=== PATIENT | male | born 1950 | race Caucasian/White ===

== ENCOUNTER 2019-09-25 23:33 | Emergency (ER) | payer MEDICARE, OTHER, SELFPAY ==
[2019-09-26 00:02] VITALS: BP 149/75; PULSE 55; RESP 16; TEMP 36.7; O2SAT 95; BMI 31.6
--- NOTE | 2019-09-26 00:21 | W.ED.ABDPA2 ---
HPI - Abdominal Pain General: Chief Complaint: Abdominal Pain Stated Complaint: unable to void Time Seen by Provider: 09/26/19 00:20 Source: patient Mode of arrival: ambulatory Limitations: no limitations History of Present Illness: HPI narrative: Patient comes in today for decreased urinary output for the last 2 days. Patient states that he has a history of urinary difficulty but has only happened that where he has had been Roberts cath was after a surgery. Patient does take finasteride routinely for his history of his bladder problems. Patient does take levocetirizine daily for allergies. Review of patient's other medications have no other concerns for medicine induced urinary retention. Patient denies any fever or chills. Patient appears well. Patient appears in no pain. MD elicited complaint: abdominal pain Review of Systems General: Reports: 10 or more systems reviewed and unremarkable except in HPI and below : Reports: difficulty urinating PFS ED PFSH: Medical History (Updated 09/26/19 @ 02:42 by NHUNG Constantino) Atherosclerotic heart disease of [place] coronary artery without angina pectoris Diabetes Dyslipidemia Essential hypertension Surgical History (Updated 07/10/19 @ 16:15 by Beck Bey MD) H/O coronary angioplasty Family History Father Prostate cancer Grandfather Prostate cancer Social History Smoking and tobacco status: never smoked Alcohol intake: never Lives independently: Yes Household members: spouse Housing: House Marital status: Current occupational status: retired History of recent travel: No Physical Exam Const: COMMON NORMALS: no acute distress and patient oriented x3 GENERAL APPEARANCE: cooperative HENMT: COMMON NORMALS: normocephalic, TM's normal bilaterally and Normal external nose present HEAD & SCALP: normal to inspection and normocephalic NOSE: Normal external nose present TYMPANIC MEMBRANE: TM's normal bilaterally MOUTH: Normal oral and palatal mucosa present THROAT: posterior oropharynx normal Eye: GENERAL EYE: appearance normal, both eyes and all related structures Neck/C-Spine: COMMON NORMALS: full ROM Lymph: LYMPHATIC: no lymphadenopathy noted Chest: COMMONS NORMALS: normal inspection of the chest Resp: COMMON NORMALS: normal respiratory effort EFFORT & INSPECTION: Yes able to speak in complete sentences Cardio: COMMON NORMALS: regular rate and regular rhythm RATE: regular rate RHYTHM: regular rhythm GI: PALPATION: Yes Tenderness to palpation present (GI) (Lower suprapubic abdomen) : COMMON NORMALS: Yes no CVA tenderness BLADDER/KIDNEY EXAM: Yes no CVA tenderness Back/Pelvis: COMMON NORMALS: no CVA tenderness and thoracic and lumbar spine normal to inspection Extremity: COMMON NORMALS: normal to inspection Neuro: COMMON NORMALS: patient oriented x3 and moves all extremities Psych: COMMON NORMALS: mental status grossly normal and cooperative Skin: COMMON NORMALS: no rashes or lesions noted GENERAL SKIN EXAM: no rashes or lesions noted Course Vital Signs: Vital signs: Vital Signs Temperature 98.0 F 09/26/19 00:02 Pulse Rate 55 L 09/26/19 00:02 Respiratory Rate 16 09/26/19 00:02 Blood Pressure 149/75 09/26/19 00:02 Pulse Oximetry 95 09/26/19 00:02 MDM - Abdominal Pain MDM Narrative: Medical decision making narrative: Patient comes in today for complaints of urinary retention. On exam patient has some suprapubic tenderness. Respirations were even lungs were clear to auscultation. Vital signs were normal. Differential diagnosis included urinary tract infection, renal dysfunction, adverse drug effect, BPH. CBC was normal. CMP noted a mild elevation in the BUN at 26. Urinalysis was clear. Roberts cath for urine was 300 cc out. Reviewed exam with patient recommended stopping levocetirizine as it increases risk of urinary retention. Recommended the use of loratadine instead for allergy symptoms. Encourage plenty of fluids and follow-up with primary care or return to the ER for worsening symptoms. Patient reported understanding agreed to plan. Lab Data: Labs: Lab Results 09/26/19 09/26/19 09/26/19 Range/Units 00:27 00:27 02:20 WBC 9.4 (4.0-10.0) 10^3/ uL RBC 4.91 (4.1-5.3) 10^6/u L Hgb 14.9 (11.7-16.6) g/dL Hct 45.9 (42.0-52.0) % MCV 93.5 (80-94) fL MCH 30.3 (28.0-34.0) pg MCHC 32.5 (30.0-36.0) g/dL RDW 12.2 (12.1-15.1) % Plt Count 253 (130-400) 10^3/c mm MPV 9.1 (7.4-10.4) fL Neut % (Auto) 55.4 % Lymph % (Auto) 29.2 % [place] % (Auto) 11.2 % Eos % (Auto) 3.0 % Baso % (Auto) 0.9 % Neut # (Auto) 5.2 (1.8-7.7) 10^3/u L Lymph # (Auto) 2.7 (0.8-4.8) 10^3/u L [place] # (Auto) 1.1 H (0.2-0.9) 10^3/u L Eos # (Auto) 0.3 (0.0-0.8) 10^3/u L Baso # (Auto) 0.1 (0.0-0.1) 10^3/u L Nucleated RBC % (a uto) 0 % Nucleated RBCs # 0.0 /100WBC Sodium 141 (136-145) mmol/L Potassium 3.9 (3.5-5.1) mmol/L Chloride 106 (98-107) mmol/L Carbon Dioxide 23 (22-29) mmol/L Anion Gap 15.9 (5-19) BUN 26 H (8-23) mg/dL Creatinine 0.7 (0.7-1.2) mg/dL GFR Calculation 111.5 (90-130) mL/min Glucose 92 (65-115) mg/dL Calculated Osmolal ity 289 (285-295) mOsm/k g Calcium 8.8 (8.5-10.5) mg/dL Total Bilirubin 0.4 (0.15-1.2) mg/dL AST 19 (0-40) U/L ALT 20 (0-41) U/L Alkaline Phosphata se 53 (40-130) IU/L Total Protein 6.4 L (6.6-8.7) g/dL Albumin 4.2 (3.5-5.2) g/dL Globulin 2.2 (1.3-4.6) g/dL Urine Color Yellow (Yellow) Urine Appearance Clear (CLEAR) Urine pH 5 (5-7) Ur Specific Gravit y 1.030 (1.005-1.030) Urine Protein Neg (Negative) Urine Glucose (UA) Norm (Normal) Urine Ketones Negative (Negative) Urine Blood Neg (Negative) Urine Nitrate Negative (Negative) Urine Bilirubin Neg (NEGATIVE) Urine Urobilinogen Norm (Negative) mg/dL Ur Leukocyte Lisa ase Negative (Negative) Discharge Plan Discharge Patient Disposition: Home, Self-Care Clinical Impression: Urinary retention Adverse drug effect Qualifiers: Encounter type: initial encounter Qualified Code(s): T50.905A - Adverse effect of unspecified drugs, medicaments and biological substances, initial encounter Condition: Stable Prescriptions: Discontinued levocetirizine [Xyzal] 5 mg tablet 5 mg PO DAILY RF: 0 No Action aspirin [Aspirin Childrens] 81 mg tablet,chewable 81 mg PO DAILY RF: 0 lisinopril 10 mg tablet 10 mg PO DAILY RF: 0 acetaminophen [Tylenol] 325 mg capsule 325 mg PO QID PRNRF: 0 rosuvastatin 10 mg tablet 10 mg PO DAILY RF: 0 Discharge Orders: Discharge Order (Routine); Ordered 09/26/19 Ordered By: Akbar Chang Referrals: Pop Rice MD [Primary Care Provider] - Discharge Diet: Usual diet Discharge Activity: Increase activity as tolerated Activity Restrictions/Additional Instructions: Drink plenty of fluids. Stop Xyzal due to risk of urinary retention. You may use Claritin, loratadine, for your allergy symptoms. Monitor for fever, worsening symptoms and return to the ER if needed. Follow-up with primary care in 1 week. Coding Level of Care Code ED Marine Equipment Design Engineer for g Fwd Exam Comprehensive
[2019-09-26 00:43] LABS: Basophils # 0.1 10^3/uL (0.0-0.1); Basophils % 0.9 %; Eosinophils # 0.3 10^3/uL (0.0-0.8); Hematocrit 45.9 % (42.0-52.0); Hemoglobin 14.9 g/dL (11.7-16.6); Lymphocytes # 2.7 10^3/uL (0.8-4.8); Lymphocytes % 29.2 %; Mean Corpuscular HGB Conc 32.5 g/dL (30.0-36.0); Mean Corpuscular Hemoglobin 30.3 pg (28.0-34.0); Mean Corpuscular Volume 93.5 fL (80-94); Mean Platelet Volume 9.1 fL (7.4-10.4); Monocytes # 1.1 10^3/uL (0.2-0.9); Monocytes % 11.2 %; Neutrophils # 5.2 10^3/uL (1.8-7.7); Neutrophils % 55.4 %; Nucleated Red Blood Cells % 0 %; Platelet Count 253 10^3/cmm (130-400); Red Blood Count 4.91 10^6/uL (4.1-5.3); Red Cell Distribution Width 12.2 % (12.1-15.1); White Blood Count 9.4 10^3/uL (4.0-10.0)
[2019-09-26 00:57] LABS: Alanine Aminotransferase 20 U/L (0-41); Albumin Level 4.2 g/dL (3.5-5.2); Alkaline Phosphatase 53 IU/L (40-130); Anion Gap 15.9 (5-19); Aspartate Amino Transferase 19 U/L (0-40); Blood Urea Nitrogen 26 mg/dL (8-23); Calcium 8.8 mg/dL (8.5-10.5); Carbon Dioxide 23 mmol/L (22-29); Chloride 106 mmol/L (98-107); Globulin 2.2 g/dL (1.3-4.6); Glomerular Filtration Rate 111.5 mL/min (90-130); Glucose 92 mg/dL (65-115); Osmolality Calculated 289 mOsm/kg (285-295); Potassium 3.9 mmol/L (3.5-5.1); Sodium 141 mmol/L (136-145); Total Bilirubin 0.4 mg/dL (0.15-1.2); Total Protein 6.4 g/dL (6.6-8.7)
[2019-09-26 02:26] LABS: Add Urine Microscopic? NO; Bilirubin Urine Neg (NEGATIVE); Blood Urine Neg (Negative); Glucose Urine UA Norm (Normal); Ketones Urine Negative (Negative); Leukocyte Esterase Urine Negative (Negative); Nitrate Urine Negative (Negative); Protein Urine Neg (Negative); Urine Appearance Clear (CLEAR); Urine Color Yellow (Yellow); Urobilinogen Urine Norm (Negative); pH Urine 5 (5-7)
[2019-09-26 02:52] VITALS: BP 142/84; PULSE 60; RESP 20; O2SAT 96
--- NOTE | 2019-09-26 02:56 | PC.NURSE ---
i agree with this assessment
== END 2019-09-26 02:58 | disposition home or self-care (01) ==
PROVIDERS: Emergency Provider Nurse Practitioner Family; PCP Family Medicine
DX: R33.9 Retention of urine, unspecified (principal); T50.905A Adverse effect of unspecified drugs, medicaments and biological substances, initial encounter; Z79.82 Long term (current) use of aspirin; E78.5 Hyperlipidemia, unspecified; E11.9 Type 2 diabetes mellitus without complications; I10 Essential (primary) hypertension; Z98.61 Coronary angioplasty status
CPT/HCPCS: 12345; 51702; 80053; 81003; 85025; 99282; 99283

== ENCOUNTER 2019-09-27 00:43 | Emergency (ER) | payer MEDICARE, OTHER, SELFPAY ==
[2019-09-27 00:50] VITALS: BP 164/75; PULSE 56; RESP 18; TEMP 36.6; O2SAT 97; BMI 32.5
--- NOTE | 2019-09-27 00:59 | W.ED.MALEGU ---
HPI - Male Genitourinary General: Chief complaint: Urogenital-Male Stated complaint: unable to urinate/here yesterday for same Time Seen by Provider: 09/27/19 00:59 History of Present Illness: HPI Narrative: Patient comes in again tonight for difficulty of urination again. Patient reports urinating this morning without any difficulty. Patient then reports this evening he was been unable to urinate again. Patient was seen last night and was drained of 300 mL's of urine. Patient did not want to continue with the Soria catheter last night and wanted to try stopping medication to see if he was able to go. Review of Systems General: Reports: 10 or more systems reviewed and unremarkable except in HPI and below : Reports: difficulty urinating [facility] ED PFSH: Medical History (Updated 09/27/19 @ 01:51 by NHUNG Constantino) Atherosclerotic heart disease of [place] coronary artery without angina pectoris Diabetes Dyslipidemia Essential hypertension Surgical History (Updated 07/10/19 @ 16:15 by Beck Bey MD) H/O coronary angioplasty Family History Father Prostate cancer Grandfather Prostate cancer Social History Smoking and tobacco status: never smoked Alcohol intake: never Lives independently: Yes Household members: spouse Housing: House Marital status: Current occupational status: retired History of recent travel: No Physical Exam Const: COMMON NORMALS: no acute distress and patient oriented x3 GENERAL APPEARANCE: cooperative HENMT: COMMON NORMALS: normocephalic and Normal external nose present HEAD & SCALP: normal to inspection and normocephalic NOSE: Normal external nose present MOUTH: Normal oral and palatal mucosa present THROAT: posterior oropharynx normal Eye: GENERAL EYE: appearance normal, both eyes and all related structures Neck/C-Spine: COMMON NORMALS: full ROM Chest: COMMONS NORMALS: normal inspection of the chest Resp: COMMON NORMALS: normal respiratory effort EFFORT & INSPECTION: Yes able to speak in complete sentences Cardio: COMMON NORMALS: regular rate and regular rhythm RATE: regular rate RHYTHM: regular rhythm GI: COMMON NORMALS: non-tender : COMMON NORMALS: Yes no CVA tenderness BLADDER/KIDNEY EXAM: Yes no CVA tenderness Back/Pelvis: COMMON NORMALS: no CVA tenderness and thoracic and lumbar spine normal to inspection Extremity: COMMON NORMALS: normal to inspection Neuro: COMMON NORMALS: patient oriented x3 and moves all extremities Psych: COMMON NORMALS: mental status grossly normal and cooperative Skin: COMMON NORMALS: no rashes or lesions noted GENERAL SKIN EXAM: no rashes or lesions noted Course Vital Signs: Vital signs: Vital Signs Temperature 97.8 F 09/27/19 00:50 Pulse Rate 56 L 09/27/19 00:50 Respiratory Rate 18 09/27/19 00:50 Blood Pressure 164/75 09/27/19 00:50 Pulse Oximetry 97 09/27/19 00:50 MDM - Male MDM Narrative: Medical decision making narrative: Patient comes in today for complaints of urinary discomfort and difficulty urinating. Patient appears well. Patient appears in no acute distress. Patient was seen last night for the similar problem and had a Soria placed but did not want to leave in the Soria in 1 to try his routine today. Patient this evening found that he could not urinate again. Patient wants a Soria and now and wants to leave it in for the time until he follows up with primary care or urology. Soria catheter was placed and patient had 100-200 cc out. I suspect patient probably might have a mild prostatitis that is giving him the sensation of not fully voiding. We will go ahead and leave the catheter in for the next 3 days and plan to have it removed either with his primary care or urology. Case management will see about getting patient into Dr. Ortega's office. Patient already has an appointment with Dr. Rice on Sunday. Will start patient on Bactrim to cover for prostatitis. Patient was already started on tamsulosin by Dr. Rice. Discharge Plan Discharge Patient Disposition: Home, Self-Care Clinical Impression: Urinary retention Condition: Stable Prescriptions: New Bactrim DS 800-160 mg tablet 1 tab PO BID 10 Days Qty: 20 RF: 0 No Action aspirin [Aspirin Childrens] 81 mg tablet,chewable 81 mg PO DAILY RF: 0 lisinopril 10 mg tablet 10 mg PO DAILY RF: 0 acetaminophen [Tylenol] 325 mg capsule 325 mg PO QID PRNRF: 0 rosuvastatin 10 mg tablet 10 mg PO DAILY RF: 0 Discharge Orders: Discharge Order (Routine); Ordered 09/27/19 Ordered By: Akbar Chang Referrals: Pop Rice MD [Primary Care Provider] - Discharge Diet: Usual diet Discharge Activity: Increase activity as tolerated Activity Restrictions/Additional Instructions: Drink plenty of water, avoid pulling on soria catheter, follow-up with primary care in three days or urology for removal of catheter, Take antibiotics as directed Return to ER for high fever or new concerns Coding Level of Care Code ED Plate Fitter for Chg Fwd Exam Comprehensive
--- NOTE | 2019-09-27 02:15 | PC.NURSE ---
Leg bag placed on patient and home care instructions given to patient with all questions asked and answered.
[2019-09-27] MEDS: sulfamethoxazole-trimeth DS 160-800 mg Tablet 1 TAB PO (02:23)
[2019-09-27 02:24] LABS: Urine Appearance SL Hazy (CLEAR); Urine Color Yellow (Yellow); pH Urine 5 (5-7)
[2019-09-27 02:25] LABS: Add Urine Microscopic? YES; Bilirubin Urine Neg (NEGATIVE); Blood Urine 3+ (Negative); Glucose Urine UA Norm (Normal); Ketones Urine 1+ (Negative); Leukocyte Esterase Urine Negative (Negative); Nitrate Urine Negative (Negative); Protein Urine Neg (Negative); Urobilinogen Urine 1 mg/dL (Negative)
[2019-09-27 02:26] LABS: Bacteria Urine TRACE; RBC Urine 40-50 /hpf (0-2); Squamous Epithelial Cell Urine 0-4 (0-5); WBC Urine 0-4 /hpf (0-5)
[2019-09-27 02:27] LABS: Add Urine Culture? Yes; Mucus Urine 2+
== END 2019-09-27 02:31 | disposition home or self-care (01) ==
PROVIDERS: Emergency Provider Nurse Practitioner Family; PCP Family Medicine
DX: R33.9 Retention of urine, unspecified (principal); Z79.82 Long term (current) use of aspirin; E11.9 Type 2 diabetes mellitus without complications; E78.5 Hyperlipidemia, unspecified; I10 Essential (primary) hypertension; Z98.61 Coronary angioplasty status
CPT/HCPCS: 12345; 51702; 81001; 87086; 99281; 99282; 99283

== ENCOUNTER 2019-09-27 07:42 | Emergency (ER) | payer MEDICARE, OTHER, SELFPAY ==
[2019-09-27] VITALS (7 sets, daily range): BP systolic 166–198; BP diastolic 81–100; PULSE 53–98; RESP 16–18; TEMP 36.6–36.7; O2SAT 95–96; BMI 32.5
--- NOTE | 2019-09-27 07:53 | W.ED.MALEGU ---
HPI - Male Genitourinary General: Chief complaint: Urogenital-Male Stated complaint: cath issues Time Seen by Provider: 09/27/19 07:48 History of Present Illness: HPI Narrative: Patient is a 68-year-old male who comes to the ED with Soria catheter issues. Patient was seen here last night due to urinary retention and a Soria catheter was placed and he was put on Bactrim. He woke up this morning and is having a lot of lower abdominal pain, nausea and discomfort around Soria catheter. He describes the discomfort and pain a 10 out of 10. Patient did say that he was given a Bactrim pill here in the ED last night and he took at home and took medication when he got home on an empty stomach. Patient has not eaten or drank much in the last several hours. Denies any fever chills Associated symptoms: Reports dysuria and nausea; Deny hematuria or vomiting Review of Systems Const: Denies: fever(s), chills or fatigue Eyes: Denies: change in vision or eye discomfort ENMT: Denies: throat pain, odynophagia, nasal discharge or nasal congestion Card: Denies: chest pain, palpitations, edema, swelling of feet/ankles, dyspnea on exertion or orthopnea Resp: Denies: dyspnea, productive cough or non-productive cough GI: Reports: abdominal pain (over the bladder) and nausea; Denies: vomiting, diarrhea, constipation or hematochezia : Reports: dysuria and other (soria not draining); Denies: flank pain, difficulty urinating or hematuria Musc: Reports: back pain; Denies: neck pain or extremity swelling Skin/Breast: Denies: rash or new lesions Neuro: Denies: headache(s), numbness in extremities or weakness in extremities PFS ED PFSH: Medical History Atherosclerotic heart disease of [place] coronary artery without angina pectoris Diabetes Dyslipidemia Essential hypertension Surgical History H/O coronary angioplasty Family History Father Prostate cancer Grandfather Prostate cancer Social History Smoking and tobacco status: never smoked Alcohol intake: never Lives independently: Yes Household members: spouse Housing: House Marital status: Current occupational status: retired History of recent travel: No Physical Exam Const: COMMON NORMALS: patient oriented x3 and alert GENERAL APPEARANCE: cooperative and comfortable (appears a little uncomfortable) HENMT: COMMON NORMALS: normocephalic HEAD & SCALP: normocephalic MOUTH: Normal oral and palatal mucosa present THROAT: posterior oropharynx normal and uvula midline Eye: COMMON NORMALS: Equal, round and reactive pupils present PUPIL: Yes Equal, round and reactive pupils present Neck/C-Spine: COMMON NORMALS: supple GENERAL: Yes normal visual inspection Resp: COMMON NORMALS: normal respiratory effort, No retractions, No use of accessory muscles and clear to auscultation bilaterally AUSCULTATION: clear to auscultation bilaterally Cardio: COMMON NORMALS: regular rate, regular rhythm, S1 normal heart sound present, S2 normal heart sound present, No gallops present (Cardio), No clicks present (Cardio), No murmurs present (Cardio) and Peripheral pulses 2+ throughout RATE: regular rate RHYTHM: regular rhythm HEART SOUNDS: S1 normal heart sound present and S2 normal heart sound present PERIPHERAL PULSES: Peripheral pulses 2+ throughout GI: COMMON NORMALS: Normal to inspection, nondistended, normoactive bowel sounds present, Soft to palpation and no masses PALPATION: Yes Soft to palpation, Yes Firmness to palpation present (GI) (over bladder in lower abdomen) and Yes Tenderness to palpation present (GI) (moderate tenderness over bladder in lower abdomen) : COMMON NORMALS: Yes no CVA tenderness BLADDER/KIDNEY EXAM: Yes no CVA tenderness Back/Pelvis: COMMON NORMALS: no CVA tenderness THORACIC SPINE/UPPER BACK: Yes paraspinal muscle tenderness Thoracic paraspinal muscle tenderness: right Right thoracic paraspinal muscle tenderness: T10, T11 and T12 Extremity: COMMON NORMALS: normal to inspection and no pedal edema Neuro: COMMON NORMALS: patient oriented x3 and moves all extremities SENSORIUM/ORIENTATION: Yes alert Skin: COMMON NORMALS: no rashes or lesions noted GENERAL SKIN EXAM: no rashes or lesions noted and dry skin Course Vital Signs: Vital signs: Vital Signs Temperature 97.9 F 09/27/19 11:22 Pulse Rate 98 09/27/19 11:22 Respiratory Rate 16 05/30/20 11:22 Blood Pressure 198/85 05/30/20 11:22 Pulse Oximetry 95 09/27/19 11:22 MDM - Male MDM Narrative: Medical decision making narrative: Patient is a 68-year-old male who comes to the ED with Soria catheter problems. Soria catheter was placed last night and patient was given an oral dose of Bactrim that he took last night on empty stomach. Patient returns with some nausea, burning pain when urinating. Bladder scan was performed and showed approximately 50 mils. White blood cells 13.7, CMP is negative and UA showed blood, bacteria and many white blood cells. Patient was given IV fluids, morphine and Zofran for nausea. Patient was also given an IV dose of Rocephin while here in the ED. Patient's catheter was flushed and it was working accordingly. After 2 bags of IV fluid patient was producing urine it was flowing accordingly into Soria cath bag. Patient was given a prescription for Bactrim and he was told to call [facility] urologist on Sunday to set up an appointment. He was instructed on catheter care and told to take full course of antibiotics as prescribed. He also has a follow-up appointment with his PCP this Sunday. Patient told to return to ED if symptoms worsen. Patient understood and agreed with plan. Lab Data: Attestation: I reviewed the patient's lab results. Labs: Lab Results 09/27/19 09/27/19 09/27/19 Range/Units 08:24 08:24 08:30 WBC 13.7 H (4.0-10.0) 10^3/ uL RBC 5.08 (4.1-5.3) 10^6/u L Hgb 15.5 (11.7-16.6) g/dL Hct 46.2 (42.0-52.0) % MCV 90.9 (80-94) fL MCH 30.5 (28.0-34.0) pg MCHC 33.5 (30.0-36.0) g/dL RDW 12.1 (12.1-15.1) % Plt Count 258 (130-400) 10^3/c mm MPV 9.1 (7.4-10.4) fL Neut % (Auto) 82.8 % Lymph % (Auto) 11.1 % [place] % (Auto) 4.9 % Eos % (Auto) 0.2 % Baso % (Auto) 0.6 % Neut # (Auto) 11.3 H (1.8-7.7) 10^3/u L Lymph # (Auto) 1.5 (0.8-4.8) 10^3/u L [place] # (Auto) 0.7 (0.2-0.9) 10^3/u L Eos # (Auto) 0.0 (0.0-0.8) 10^3/u L Baso # (Auto) 0.1 (0.0-0.1) 10^3/u L Nucleated RBC % (a uto) 0 % Nucleated RBCs # 0.0 /100WBC Sodium 141 (136-145) mmol/L Potassium 3.7 (3.5-5.1) mmol/L Chloride 103 (98-107) mmol/L Carbon Dioxide 22 (22-29) mmol/L Anion Gap 19.7 H (5-19) BUN 23 (8-23) mg/dL Creatinine 0.8 (0.7-1.2) mg/dL GFR Calculation 95.6 (90-130) mL/min Glucose 152 H (65-115) mg/dL Calculated Osmolal ity 292 (285-295) mOsm/k g Calcium 9.2 (8.5-10.5) mg/dL Total Bilirubin 1.0 (0.15-1.2) mg/dL AST 18 (0-40) U/L ALT 23 (0-41) U/L Alkaline Phosphata se 59 (40-130) IU/L Total Protein 7.1 (6.6-8.7) g/dL Albumin 4.6 (3.5-5.2) g/dL Globulin 2.5 (1.3-4.6) g/dL Urine Color [place] (Yellow) Urine Appearance Sl cloudy A (CLEAR) Urine pH 5 (5-7) Ur Specific Gravit y 1.030 (1.005-1.030) Urine Protein 3+ H (Negative) Urine Glucose (UA) Norm (Normal) Urine Ketones 1+ H (Negative) Urine Blood 3+ H (Negative) Urine Nitrate Negative (Negative) Urine Bilirubin Neg (NEGATIVE) Urine Urobilinogen 1 H (Negative) mg/dL Ur Leukocyte Lisa ase 1+ H (Negative) Urine RBC Too numerous to c nt H (0-2) /hpf Urine WBC 55-80 H (0-5) /hpf Ur Squamous Epith Cells Rare (0-5) Calcium Oxalate Cr ystal 0-4 H /hpf Urine Bacteria 2+ H (NONE) Urine Mucus 2+ Discharge Plan Discharge Patient Disposition: Home, Self-Care Clinical Impression: Urinary tract infection associated with indwelling urethral catheter Qualifiers: Encounter type: subsequent encounter Qualified Code(s): T83.511D - Infection and inflammatory reaction due to indwelling urethral catheter, subsequent encounter Condition: Stable Prescriptions: New sulfamethoxazole-trimethoprim 800-160 mg tablet 1 tab PO BID 10 Days Qty: 20 RF: 0 ondansetron 4 mg tablet,disintegrating 4 mg PO TID Qty: 20 RF: 0 No Action aspirin [Aspirin Childrens] 81 mg tablet,chewable 81 mg PO DAILY RF: 0 lisinopril 10 mg tablet 10 mg PO DAILY RF: 0 acetaminophen [Tylenol] 325 mg capsule 325 mg PO QID PRN (Reason: Pain) RF: 0 rosuvastatin 10 mg tablet 10 mg PO DAILY RF: 0 Vitamin C 1,000 mg Tablet 500 mg PO DAILY RF: 0 atorvastatin 20 mg tablet 20 mg PO DAILY RF: 0 tamsulosin 0.4 mg capsule 0.4 mg PO DAILY RF: 0 zinc 50 mg Tablet 50 mg PO DAILY RF: 0 finasteride 5 mg tablet 5 mg PO DAILY RF: 0 sildenafil (pulm.hypertension) 20 mg tablet 20 mg PO PRN PRN (Reason: erectil disfunction) RF: 0 Vitamin D3 50 mcg (2,000 unit) Tablet 50 mcg PO DAILY RF: 0 Discharge Orders: Discharge Order (Routine); Ordered 09/27/19 Ordered By: Reno Loza Referrals: Pop Rice MD [Primary Care Provider] - Discharge Diet: Regular Discharge Activity: Resume usual activity Patient Instructions: Soria Catheter Care, Urinary Tract Infection in Men (ED), Urinary Leg Bag (GEN) Activity Restrictions/Additional Instructions: Call [facility] urology office on Sunday to set up an appointment. Take full course of antibiotic as prescribed. I am also sending you with a prescription for an antinausea medication. Use antinausea med as needed. Follow-up with Dr. Rice on your previously scheduled Margarita appointment. Take Tylenol or ibuprofen for any pain or discomfort. Drink plenty of fluids and stay hydrated. Return to ED if symptoms worsen. Discharge Date/Time: 09/27/19 11:25 Coding Level of Care Code ED Field Operator for Marie F[place] Exam Comprehensive
[2019-09-27 08:38] LABS: Basophils # 0.1 10^3/uL (0.0-0.1); Basophils % 0.6 %; Eosinophils % 0.2 %; Hematocrit 46.2 % (42.0-52.0); Hemoglobin 15.5 g/dL (11.7-16.6); Lymphocytes # 1.5 10^3/uL (0.8-4.8); Lymphocytes % 11.1 %; Mean Corpuscular HGB Conc 33.5 g/dL (30.0-36.0); Mean Corpuscular Hemoglobin 30.5 pg (28.0-34.0); Mean Corpuscular Volume 90.9 fL (80-94); Mean Platelet Volume 9.1 fL (7.4-10.4); Monocytes # 0.7 10^3/uL (0.2-0.9); Monocytes % 4.9 %; Neutrophils # 11.3 10^3/uL (1.8-7.7); Neutrophils % 82.8 %; Nucleated Red Blood Cells % 0 %; Platelet Count 258 10^3/cmm (130-400); Red Blood Count 5.08 10^6/uL (4.1-5.3); Red Cell Distribution Width 12.1 % (12.1-15.1); White Blood Count 13.7 10^3/uL (4.0-10.0)
[2019-09-27] MEDS: morphine 4 mg/mL SDV 1 mL IVP ×2 (08:38→10:30)
[2019-09-27] MEDS: sodium chloride 0.9% 1,000 ML 999 ML IV ×2 (08:40→10:02)
[2019-09-27] MEDS: ondansetron 2 mg/ML SDV 2 mL 4 MG IVP ×2 (08:40→10:29)
[2019-09-27 08:53] LABS: Alanine Aminotransferase 23 U/L (0-41); Albumin Level 4.6 g/dL (3.5-5.2); Alkaline Phosphatase 59 IU/L (40-130); Anion Gap 19.7 (5-19); Aspartate Amino Transferase 18 U/L (0-40); Blood Urea Nitrogen 23 mg/dL (8-23); Calcium 9.2 mg/dL (8.5-10.5); Carbon Dioxide 22 mmol/L (22-29); Chloride 103 mmol/L (98-107); Creatinine Clr Calc Pharmacy 103.2816; Globulin 2.5 g/dL (1.3-4.6); Glomerular Filtration Rate 95.6 mL/min (90-130); Glucose 152 mg/dL (65-115); Osmolality Calculated 292 mOsm/kg (285-295); Potassium 3.7 mmol/L (3.5-5.1); Sodium 141 mmol/L (136-145); Total Protein 7.1 g/dL (6.6-8.7)
--- NOTE | 2019-09-27 09:03 | PC.NURSE ---
FLUSHED LANG CATH WITH 50MLS NS, WITH APPROX 40-50 MLS RETURN. PT TOLERATED WELL. PAIN MEDICATION MORPHINE DECREASED PAIN LEVEL TO 7/10. AT BEDSIDE.
[2019-09-27] MEDS: cefTRIAXone 1,000 MG in sodium chloride 0.9% (plus) 50 ML 100 MG IV (09:10)
[2019-09-27 09:12] LABS: Glucose Urine UA Norm (Normal); Protein Urine 3+ (Negative); Urine Color Amber (Yellow); pH Urine 5 (5-7)
[2019-09-27 09:13] LABS: Bilirubin Urine Neg (NEGATIVE); Blood Urine 3+ (Negative); Ketones Urine 1+ (Negative); Leukocyte Esterase Urine 1+ (Negative); Nitrate Urine Negative (Negative); Urobilinogen Urine 1 mg/dL (Negative)
[2019-09-27 09:25] LABS: Bacteria Urine 2+; Calcium Oxalate Crystals Urine 0-4 /hpf; RBC Urine TOO NUMEROUS TO CNT /hpf (0-2); Squamous Epithelial Cell Urine RARE (0-5); WBC Urine 55-80 /hpf (0-5)
[2019-09-27 09:26] LABS: Add Urine Culture? Yes; Mucus Urine 2+
--- NOTE | 2019-09-27 10:24 | PC.NURSE ---
TELECOMMUNICATIONS TECHNICIAN AT BEDSIDE, FLUIDS INFUSING, NO ACUTE DISTRESS. CONTINUE TO MONITOR.
--- NOTE | 2019-09-30 13:17 | DCPLANNER ---
wild life manager had message to schedule a follow up appointment for patient with Dr. Ortega. wild life manager called the office of Dr. Ortega, spoke with Chetna. wild life manager gave clinic patients information, was told that patients information would be printed and reviewed. Clinic will call patient with appointment information.
--- NOTE | 2019-10-01 07:55 | DCPLANNER ---
Patient has a follow up appointment scheduled for , October 09, 2019 at 2:30. Clinic will call patient with appointment information.
--- NOTE | 2019-10-16 12:44 | DCPLANNER ---
Patients appointment scheduled for 10.09.[address] Munson office was cancelled.
== END 2019-09-27 11:25 | disposition home or self-care (01) ==
PROVIDERS: Emergency Provider Physician Assistant; PCP Family Medicine
DX: T83.518A Infection and inflammatory reaction due to other urinary catheter, initial encounter (principal); Z79.82 Long term (current) use of aspirin; E11.9 Type 2 diabetes mellitus without complications; E78.5 Hyperlipidemia, unspecified; I10 Essential (primary) hypertension
CPT/HCPCS: 12345; 51798; 80053; 81001; 85025; 87086; 96361; 96365; 96375; 96376; 99283; J0696; J2270; J2405; J7030

== ENCOUNTER → 2025-03-19 14:16 | Outpatient (BNVA) | payer MEDICARE, OTHER, SELFPAY | PROVIDERS: PCP Family Medicine; Visit Provider Dermatology | DX: C44.619 Basal cell carcinoma of skin of left upper limb, including shoulder (principal) | CPT/HCPCS: 11602; 12032 ==